=== PATIENT | female | born 1965 | race Caucasian/White ===

== ENCOUNTER 2024-09-30 11:24 | Emergency (ER) | payer OTHER ==
[~2024-09-30] VITALS: Ht 165.1 cm; Wt 109.0 kg
[~2024-09-30 11:24] MED LIST: FENO160T OR; HYDR25TA4 OR; SIMV20TA20 OR
[2024-09-30] MEDS: PROCHLORPERAZINE EDISYLATE 5 MG/ML 2ML VIAL ONE (11:34)
[2024-09-30] MEDS: PROCHLORPERAZINE EDISYLATE 5 MG/ML 2ML VIAL IV ONE (11:34)
[2024-09-30] MEDS: SODIUM CHLORIDE 0.9% 500 ML IV ONE (11:38)
--- NOTE | 2024-09-30 11:42 | ED.PDOC ---
HPI (NEURO) HPI Comments 59 Y F with PMHX of HTN, HLD, and fibromyalgia presents to the ED with CC of seizure. Per EMS, patient was eating a cough drop when spontaneously she began to have a seizure which lasted about 1 minute. Per, EMS upon arrival to scene patient was extremely lethargic and nauseated; patient's blood pressure was elevated and BS read at 147. Patient was given 4mg of Zofran in route to ED with no relief. Patient denies tobacco usage, ETOH consumption, or illicit drug use. Patient denies fever, chills, headache, or diarrhea. 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, Medications, Allergies Mode of Arrival: EMS Severity: Moderate Headache Severity: None Timing: Minutes Duration: Since onset Prehospital treatment: 12 Lead EKG, Accucheck Seizure Quality: Tonic-clonic Onset: At rest Circumstances: Spontaneous Before: Lethargic History of: None Modifying factors: Nothing Associated Signs and Symptoms: Nausea, Vomiting Past Medical History PAST MEDICAL HISTORY: HTN Surgical History: Appendectomy, BTL Family History Family History: No family hx of HTN Social History Smoker: Cigarettes, Greater Than 1 Pack/Day Alcohol: Rarely Drugs: Denies Drug Use Lives In: Home Constitutional: denies: chills, diaphoresis, fatigue, fever, malaise, sweats, weakness, others EENTM: denies: blurred vision, double vision, ear bleeding, ear discharge, ear drainage, ear pain, ear ringing, eye pain, eye redness, hearing loss, mouth pain, mouth swelling, nasal discharge, nose bleeding, nose congestion, nose pain, photophobia, tearing, throat pain, throat swelling, voice changes, others Respiratory: denies: cough, hemoptysis, orthopnea, SOB at rest, shortness of breath, SOB with excertion, stridor, wheezing, others Cardiovascular: denies: chest pain, dizzy spells, diaphoresis, Dyspnea on exertion, edema, irregular heart beat, left arm pain, lightheadedness, palpitations, PND, syncope, others Gastrointestinal: reports: nausea, vomiting; denies: abdomen distended, abdominal pain, blood streaked bowels, constipated, diarrhea, dysphagia, difficulty swallowing, hematemesis, melena, poor appetite, poor fluid intake, r ectal bleeding, rectal pain, others Genitourinary: denies: abnormal vagina bleeding, burning, dyspareunia, dysuria, flank pain, frequency, hematuria, incontinence, pain, , vagina discharge, urgency, others Neurological: reports: seizure; denies: dizziness, fainting, headache, left sided numbness, left sided weakness, numbness, paresthesia, pre-existing deficit, right sided numbness, right sided weakness, speech problems, tingling, tremors, weakness, others Musculoskeletal: denies: back pain, gout, joint pain, joint swelling, muscle pain, muscle stiffness, neck pain, others Integumetry: denies: bruises, change in color, change in hair/nails, dryness, laceration, lesions, lumps, rash, wounds, others Allergic/Immunocompromised: denies: Difficulty Healing, Frequent Infections, Hives, Itching, others Hematologic/Lymphatic: denies: anemia, blood clots, easy bleeding, easy bruising, swollen glands, others Endocrine: denies: excessive hunger, excessive sweating, excessive thirst, excessive urination, flushing, intolerance to cold, intolerance to heat, unexplained weight gain, unexplained weight loss, others Psychiatric: denies: anxiety, bipolar disorder, depression, hopeless, panic disorder, schizophrenia, sleepless, suicidal, others Physical Exam General Appearance: Moderate Distress HEENT: Normal ENT Inspection, Pharynx Normal, TMs Normal Neck: Full Range of Motion, Non-Tender, Normal, Normal Inspection Respiratory: Chest Non-Tender, Lungs Clear, No Accessory Muscle Use, No Respiratory Distress, Normal Breath Sounds Cardiovascular: No Edema, No JVD, No Murmur, No Gallop, Normal Peripheral Pulses, Regular Rate/Rhythm Breast Exam: Deferred Gastrointestinal: No Organomegaly, Non Tender, No Pulsatile Mass, Normal Bowel Sounds, Soft Genitalia: Deferred Pelvic: Deferred Rectal: Deferred Extremities: No calf tenderness, Normal capillary refill, Normal inspection, Normal range of motion, Non-tender, No pedal edema Musculoskeletal : Apperance: Normal 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 Was a procedure done?: No Differential Diagnosis (SZ) Seizure: N/A General Weakness: Dehydration, Dysrhythmia, Electrolyte imbalance, Hypotension X-Ray, Labs, Meds, VS Vital Signs Date Time Temp Pulse Resp B/P (MAP) Pulse Ox O2 Delivery O2 Flow Rate FiO2 09/30/24 14:00 76 17 126/74 (91) 98 09/30/24 13:14 81 17 97 Nasal Cannula* 4 36 09/30/24 13:00 88 17 125/68 (87) 97 09/30/24 12:00 97.8 81 17 126/66 (86) 97 97.8 09/30/24 11:46 79 09/30/24 11:42 79 09/30/24 11:30 97.7 94 18 166/67 (100) 93 Lab Test 09/30/24 12:40 09/30/24 11:48 Range/Units Urine Color Yellow Yellow Urine Clarity Clear Clear Urine pH 6.0 5.0-9.0 Urine Specific [place] 1.018 1.001-1.035 Urine Protein 1+ H Negative Urine Ketones Trace Negative Urine Blood Negative Negative /uL Urine Nitrite Negative Negative Urine Bilirubin Negative Negative Urine Urobilinogen Normal Negative mg/dL Urine Leukocyte Esterase Negative Negative /uL Urine RBC None seen 0 - 4 /hpf Urine WBC <1 0 - 5 /hpf Urine Squamous Epithelial Cells None seen <5 /hpf Urine Bacteria None seen None Seen /hpf Urine Hyaline Casts Few 0 - 2 /lpf Urine Glucose Normal Normal mg/dL White Blood Count 10.4 4.4-10.8 10^3/uL Red Blood Count 4.58 4.0-5.20 10^6/uL Hemoglobin 14.0 12.2-16.2 g/dL Hematocrit 41.2 36.0-46.0 % Mean Corpuscular Volume 90.1 80.0-100.0 fL Mean Corpuscular Hemoglobin 30.6 28.0-32.0 pg Mean Corpuscular Hemoglobin Concent 33.9 32.0-36.0 g/dL Red Cell Distribution Width 15.7 H 11.8-14.3 % Platelet Count 260 140-450 10^3/uL Mean Platelet Volume 7.0 6.9-10.8 fL Neutrophils (%) (Auto) 86.9 H 37.0-80.0 % Lymphocytes (%) (Auto) 8.1 L 10.0-50.0 % Monocytes (%) (Auto) 4.4 0.0-12.0 % Eosinophils (%) (Auto) 0.4 0.0-7.0 % Basophils (%) (Auto) 0.2 0.0-2.0 % Neutrophils # (Auto) 9.0 H 1.6-8.6 10 ^3/uL Lymphocytes # (Auto) 0.8 0.4-5.4 10 ^3/uL Monocytes # (Auto) 0.5 0-1.3 10 ^3/uL Eosinophils # (Auto) 0 0-0.8 10 ^3/uL Basophils # (Auto) 0 0-0.2 10 ^3/uL Nucleated Red Blood Cells 0.0 % Sodium Level 133 L 136-145 mmol/L Potassium Level 3.5 3.5-5.1 mmol/L Chloride Level 98 98-107 mmol/L Carbon Dioxide Level 24 20-31 mmol/L Anion Gap 11 5-15 Blood Urea Nitrogen 14 9-23 mg/dL Creatinine 0.89 0.550-1.02 mg/dL Glomerular Filtration Rate Calc 74 >90 mL/min BUN/Creatinine Ratio 15.7 10.0-20.0 Serum Glucose 140 H 74-106 mg/dL Calcium Level 10.5 H 8.7-10.4 mg/dL Current Medications Medications (Trade) Dose Ordered Sig/Kilo Route Start Time Stop Time Status Last Admin Prochlorperazine Edisylate (Compazine Inj) 10 mg ONCE ONCE IV 09/30/24 11:30 09/30/24 11:31 DC 09/30/24 11:34 Sodium Chloride 500 ml @ 500 mls/hr Q1H ONCE IV 09/30/24 11:30 09/30/24 12:29 DC 09/30/24 11:38 CXR:FINDINGS: Lines and Tubes: None Lungs: No focal consolidation. Pleura: No effusion. No pneumothorax. Cardiomediastinal contours: Unremarkable Bones: No acute osseous abnormality. IMPRESSION: No acute cardiopulmonary disease. ATED BY: REMY AYALA MD DICTATED DATE/TIME: 09/30/241213 SIGNED BY: REMY AYALA MD SIGNED DATE/TIME: 09/30/241213 CC: HEAD CT: FINDINGS: There is no acute intracranial hemorrhage or extraaxial fluid collection. No mass effect or midline shift. Small lucencies in the basal ganglia bilaterally, possibly small chronic lacunar infarcts or prominent perivascular spaces. The ventricles and sulci are within normal limits in size for age. Basal cisterns are patent. Partially empty sella. The calvarium is unremarkable. Paranasal sinuses and mastoid air cells are clear. IMPRESSION: 1. No CT evidence of acute intracranial abnormality. 2. Additional nonacute findings as described above. ATED BY: COLTEN PIÑA DO DICTATED DATE/TIME: 09/30/241213 SIGNED BY: COLTEN PIÑA DO SIGNED DATE/TIME: 09/30/241213 CC: At this time we did speak with Shantanu The CBC and chemistry panel are within normal limits The urine test is negative There was a concern because of the prolonged postictal phase and so after speaking with [facility] they would like to transfer the patient down to their facility The patient is authorization #[id number] The patient was being transferred at this time. Images Reviewed?: Images reviewed and evaluated by me Time of 1ST Reevaluation: 12:00 Reevaluation 1ST: Unchanged Patient Education/Counseling: Diagnosis, Treatment, Prognosis Family Education/Counseling: Diagnosis, Treatment, Prognosis Departure 1 Departure Time of Disposition: 15:07 Impression: Primary Impression: New onset seizure Disposition: 51 HOSPICE/MEDICAL FACILITY Condition: Fair Critical Care Note Critical Care Time?: No Stability Stability form required: Yes Stable for transfer: Intended for transfer (Health plan request transfer), To designated facility Heart Score Heart Score: Heart Score Response (Comments) Value History N/A 0 EKG N/A 0 Age N/A 0 Risk Factors N/A 0 Troponin N/A 0 Total 0 I personally scribed for IRENE RUBIN MD ([email or web address]) on 09/30/24 at 11:42. Electronically submitted by Diana Landrum ([email or web address]). I personally scribed for IRENE RUBIN MD ([email or web address]) on 09/30/24 at 11:43. Electronically submitted by Diana Landrum ([email or web address]). I personally scribed for IRENE RUBIN MD ([email or web address]) on 09/30/24 at 11:46. E lectronically submitted by Diana Landrum ([email or web address]). I personally scribed for IRENE RUBIN MD ([email or web address]) on 09/30/24 at 12:54. Elec tronically submitted by Diana Landrum ([email or web address]). I personally scribed for IRENE RUBIN MD ([email or web address]) on 09/30/24 at 12:55. Electronically submitted by Diana Landrum ([email or web address]). IRENE RUBIN MD Sep 30, 2024 11:42
--- NOTE | 2024-09-30 12:17 | DVH ---
CLINICAL INFORMATION: 59 years old, Female; Headache and seizure. TECHNIQUE: Axial imaging was obtained through the brain without contrast. Coronal and sagittal refor matted images were obtained, reviewed, and stored. Images were reviewed in brain and bone windows. A ll CT scans at this medical facility are performed using dose modulation techniques as appropriate to a performed exam including the following: Automated exposure control was utilized; adjustment of the MA and/or KV according to patient size; and use of iterative reconstruction technique. CTDIvol = 65.05 mGy DLP = 1150.27 mGy-cm COMPARISON: None FINDINGS: There is no acute intracranial hemorrhage or extraaxial fluid collection. No mass effect o r midline shift. Small lucencies in the basal ganglia bilaterally, possibly small chronic lacunar inf arcts or prominent perivascular spaces. The ventricles and sulci are within normal limits in size for age. Basal cisterns are patent. Partially empty sella. The calvarium is unremarkable. Paranasal sinuses and mastoid air cells are clear. IMPRESSION: 1. No CT evidence of acute intracranial abnormality. 2. Additional nonacute findings as described above.
--- NOTE | 2024-09-30 12:17 | DVH ---
CHEST RADIOGRAPH Indication: Vomiting and shortness a breath Technique: Single frontal view of the chest was obtained Comparison: None FINDINGS: Lines and Tubes: None Lungs: No focal consolidation. Pleura: No effusion. No pneumothorax. Cardiomediastinal contours: Unremarkable Bones: No acute osseous abnormality. IMPRESSION: No acute cardiopulmonary disease.
[2024-09-30 12:30] LABS: Basophils # (auto) 0 10 ^3/uL (0-0.2); Basophils % (auto) 0.2 % (0.0-2.0); Eosinophils # (auto) 0 10 ^3/uL (0-0.8); Eosinophils % (auto) 0.4 % (0.0-7.0); Hematocrit 41.2 % (36.0-46.0); Lymphocytes # (auto) 0.8 10 ^3/uL (0.4-5.4); Lymphocytes % (auto) 8.1 % (10.0-50.0); Mean Corpuscular Hemoglobin 30.6 pg (28.0-32.0); Mean Corpuscular Hgb Conc. 33.9 g/dL (32.0-36.0); Mean Corpuscular Volume 90.1 fL (80.0-100.0); Monocytes # (auto) 0.5 10 ^3/uL (0-1.3); Monocytes % (auto) 4.4 % (0.0-12.0); Neutrophils % (auto) 86.9 % (37.0-80.0); Platelet Count (auto) 260 10^3/uL (140-450); Red Blood Cells 4.58 10^6/uL (4.0-5.20); Red Cell Distribution Width 15.7 % (11.8-14.3); White Blood Cell 10.4 10^3/uL (4.4-10.8)
[2024-09-30 12:38] LABS: Anion Gap 11 (5-15); Carbon Dioxide 24 mmol/L (20-31)
[2024-09-30 12:42] LABS: Calcium 10.5 mg/dL (8.7-10.4); Chloride 98 mmol/L (98-107); Potassium 3.5 mmol/L (3.5-5.1); Sodium 133 mmol/L (136-145)
[2024-09-30 12:43] LABS: BUN/Creatinine Ratio 15.7 (10.0-20.0); Blood Urea Nitrogen 14 mg/dL (9-23)
[2024-09-30 12:45] LABS: Glucose 140 mg/dL (74-106)
[2024-09-30 12:53] LABS: Urine Bacteria None Seen /hpf (None Seen)
[2024-09-30 13:07] LABS: Urine Blood Negative /uL (Negative); Urine Clarity Clear (Clear); Urine Color Yellow (Yellow); Urine Hyaline Cast FEW /lpf (0 - 2); Urine Protein, UAD 1+ (Negative); Urine Specific Gravity 1.018 (1.001-1.035); Urine Squamous Epithelial Cell None Seen /hpf (<5); Urine Urobilinogen Normal (Negative); Urine WBC <1 /hpf (0 - 5)
[2024-09-30 13:14] VITALS: PULSE 81; RESP 17; O2SAT 97
--- NOTE | 2024-09-30 18:32 | ECG ---
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
[2024-09-30 19:10] VITALS: RESP 14; O2SAT 96
[2024-09-30 20:05] VITALS: BP 94/45; PULSE 85; RESP 14; TEMP 98.1; O2SAT 96
== END 2024-09-30 20:26 | disposition short-term general hospital (02) ==
LOC: ER 11:24 → EDBD 11:24 → ER 20:26
DX: R56.9 Unspecified convulsions (principal); I10 Essential (primary) hypertension; F17.210 Nicotine dependence, cigarettes, uncomplicated; Z90.49 Acquired absence of other specified parts of digestive tract
CPT/HCPCS: 36415; 70450; 71045; 80048; 81001; 85025; 93005; 96365; 96375; 99285; J0780